=== PATIENT | male | born 1980 | race Caucasian/White ===

== ENCOUNTER 2020-11-02 05:29 | Inpatient (IN) | payer BC ==
[~2020-11-02] VITALS: Ht 188 cm; Wt 97.3 kg
[2020-11-02 05:45] LABS: Calcium, Ionized (POC) 1.05 mmol/L (1.10-1.46); Chloride (POC) 105 mmol/L (98-108); Creatinine (POC) 1.2 mg/dL (0.8-1.3); Glucose (ISTAT POC) 320 mg/dL (70-99); Potassium (POC) 3.7 mmol/L (3.5-5.5); Sodium (POC) 137 mmol/L (135-148); Total CO2 (POC) 15 mmol/L (21-32)
[2020-11-02 05:48] LABS: PCO2 Arterial 34.2 mmHg (35-45); PO2 Arterial 97.4 mmHg (80-100); pH Blood Arterial 7.25 (7.35-7.45)
[2020-11-02 05:51] LABS: Source, Urine Catheter
[2020-11-02 05:52] LABS: Hematocrit 48.2 % (37.0-53.0); Hemoglobin 16.1 g/dL (13.5-17.5); Mean Corpuscular HGB 30.7 pg (26.0-34.0); Mean Corpuscular HGB Conc 33.4 g/dL (31.5-36.5); Mean Corpuscular Volume 92 fL (80-100); Mean Platelet Volume 9.5 fL (9.1-12.4); Platelet Count 253 K/mm3 (150-400); RDW Coefficient Variation 13.9 % (11.7-14.2); RDW Standard Deviation 47.3 fL (35.1-46.3); Red Blood Cell Count 5.25 M/mm3 (4.30-5.90); White Blood Cell Count 14.04 K/mm3 (4.00-11.30)
[2020-11-02 06:11] LABS: Bilirubin, Urine Neg (Neg); Blood, Urine 1+ (Neg); Glucose Qualitative, Urine Neg (Neg); Ketones, Urine Neg (Neg); Leukocyte Esterase, Urine Neg (Neg); Nitrite, Urine Neg (Neg); Protein, Urine 2+ (Neg); Specific Gravity, Urine 1.015 (1.003-1.022); Urobilinogen, Urine NORM (Normal)
[2020-11-02 06:14] LABS: Appearance, Urine Clear (Clear); Color, Urine Yellow (P-Yellow)
[2020-11-02 06:15] LABS: BAND PERCENT MAN 9 % (0-8); BASOPHILS ABSOLUTE MAN 0.14 K/mm3 (0.00-0.23); BASOPHILS PERCENT MAN 1 % (0-2); EOSINOPHILS ABSOLUTE MAN 0.28 K/mm3 (0.00-0.68); EOSINOPHILS PERCENT MAN 2 % (0-6); LYMPHOCYTES ABSOLUTE MAN 5.61 K/mm3 (0.84-5.20); LYMPHOCYTES PERCENT MAN 40 % (21-46); MONOCYTES ABSOLUTE MAN 0.56 K/mm3 (0.16-1.47); MONOCYTES PERCENT MAN 4 % (4-13); MYELOCYTE ABSOLUTE MAN 0.14 K/mm3 (0.00-0.00); MYELOCYTE PERCENT MAN 1 % (0-0); SEG NEUTROPHILS PERCENT MAN 43 % (41-73); TOTAL CELLS COUNTED 100
[2020-11-02 06:17] LABS: Amorphous Light (0-Heavy); Bacteria Few /hpf; Spermatozoa Few /hpf; Squamous Epithelial Cells Few /hpf (Few); White Blood Cells, Urine 0-2 /hpf (0-5)
[2020-11-02 06:18] LABS: Alanine Aminotransfer (ALT/SGP 228 U/L (12-78); Albumin/Globulin Ratio 0.9 (0.8-1.8); Alk Phos 86 U/L (50-136); Anion Gap 16 mmol/L (6-16); Aspartate Aminotrans (AST/SGOT 200 U/L (12-37); Bilirubin, Total 0.3 mg/dL (0.1-1.0); Blood Urea Nitrogen 11 mg/dL (8-24); Bun/Creatinine Ratio 9.7 (12.0-20.0); CO2, Blood 15 mmol/L (21-32); Calcium, Blood 7.5 mg/dL (8.5-10.1); Chloride, Blood 107 mmol/L (98-108); Creatinine, Blood 1.13 mg/dL (0.60-1.20); Ethanol (Alcohol), Blood, Med <3 mg/dL; Globulin, Blood 3.3 g/dL (2.2-4.0); Glomerular Filtration Rate 57 (60-); Glucose, Blood 317 mg/dL (70-99); Potassium, Blood 3.7 mmol/L (3.5-5.5); Sodium, Blood 138 mmol/L (136-145); Total Protein, Blood 6.3 g/dL (6.4-8.2)
[2020-11-02 06:21] LABS: U Amphetamine Screen Not Detected; U Barbituate Screen Not Detected; U Benzodiazapine Screen Not Detected; U Buprenorphine Screen Not Detected; U Cannabinoids Screen Not Detected; U Cocaine Screen Not Detected; U Methadone Screen Not Detected; U Methamphetamine Screen Not Detected; U Opiates Screen Not Detected; U Oxycodone Screen Not Detected; U Phencyclidine Screen Not Detected; U Propoxyphene Screen Not Detected
[2020-11-02 06:49] LABS: SARS-Cov-2 (COVID-19) PCR, MMC NEGATIVE (NEGATIVE)
--- NOTE | 2020-11-02 09:30 | NUR ---
ADMIT PT ARRIVED TO ICU 5 AT 0835 VIA ER BED. PT IS INTUBATED AND SEDATED UPON ARRIVAL. VENT SETTINGS AC 18, TV 500, PEEP 8, FIO2 50%. PT SEDATED WITH PROPOFOL AT 50 MCG/KG/MIN. PT WITHDRAWS ALL EXTREMITIES TO NOXIOUS STIMULI. PT DOES NOT AWAKEN OR MAKE ANY PURPOSFUL MOVEMENTS AT THIS TIME. PT SHIVERING AND INTERNAL ROTATION OF SHOULDERS AND LEGS NOTED. SBW RESTRAINTS IN PLACE. CLAUDIO TEMP PROBE IN PLACE WITH CLOUDY YELLOW URINE OUTPUT NOTED. DR MEDINA AT BEDSIDE TO DISCUSS PLAN OF CARE. PT SPOUSE DARVIN AT BEDSIDE AT THIS TIME. PLAN TO PLACE COOLING CATH. WILL CONTINUE TO MONITOR.
--- NOTE | 2020-11-02 11:32 | NUR ---
TEMPERATURE MANAGEMENT COOLING CATH PLACED TO RIGHT FEMORAL SITE. COOLING STARTED AT 1100. TARGET TEMP 36 DEGREES C.
[2020-11-02 16:19] LABS: PCO2 Arterial 39.6 mmHg (35-45); pH Blood Arterial 7.36 (7.35-7.45)
--- NOTE | 2020-11-02 17:04 | NUR ---
SHIFT SUMMARY NO ACUTE CHANGES THIS SHIFT. PT REMAINS INTUBATED AND SEDATED. VENT SETTINGS AC 18, TV 500, PEEP 5, FIO2 40%. PT SEDATED WITH PROPOFOL AT 65 MCG/KG/MIN. PT WITH PERIODS OF SHIVERING AND MORE PURPOSEFUL APPEARING MOVEMENT OF UPPER EXTREMITIES. COOLING CATH LINE REMAINS IN PLACE TO RIGHT GROIN WITH TTM AT [address] OGT IN PL[address] TO LIS. MINIMAL OUTPUT NOTED. PT SPOUSE AT BEDSIDE, UPDATED TO PLAN OF CARE. CLAUDIO TEMP PROBE IN PLACE WITH CLOUDY YELLOW OUTPUT NOTED. SBW RESTRAINTS IN PLACE. VITAL SIGNS STABLE. WILL CONTINUE TO MONITOR AND REPORT OFF TO ONCOMING RN.
--- NOTE | 2020-11-02 17:11 | NUR ---
pt on vent therputic time with . minimal conversation let her ask for what she needs. Her biggest stressor is updating his sister. offered to speak with his siter. spenk 20 minutes on phone giving gentle updates and theraputic converstion with her. Spent time with pt after and coached her on talking and reminising with him. reenforced time to see neurologically how he does and moitorint his cardiac function.
[2020-11-02 17:36] LABS: International Normalized Ratio 0.95; Prothrombin Time Results 10.3 Sec (9.7-11.5)
--- NOTE | 2020-11-02 19:30 | NUR ---
ASSUMPTION OF CARE PT REMAINS INTUBATED AT THIS TIME. VENT SETTINGS 18/500/5/40%. PT HAS COOLING CATH WITH TARGET TEMP 96.8. PT CONTINUES TO HAVE ELEVATED TEMP. PT UNABLE TO FOLLOW COMMANDS BUT WITHDRAWS FROM NOXIOUS STIMULI. PUPILS SLUGGISH TO RESPOND. HEPARIN INFUSING AT 13UNITS/HR AND PROPOFOL 65MCG/KG/MIN. CLAUDIO DRAINING YELLOW URINE.
--- NOTE | 2020-11-02 22:40 | NUR ---
HYPERTENSIVE DR. MEDINA NOTIFIED OF BP 160-170S/100-110. NEW ORDERS RECEIVED FOR AMLODIPINE 5MG PT.
[2020-11-03 05:49] LABS: BASOPHILS ABSOLUTE AUTO 0.05 K/mm3 (0.00-0.23); BASOPHILS PERCENT AUTO 0 % (0-2); EOSINOPHILS ABSOLUTE AUTO 0.13 K/mm3 (0.00-0.68); EOSINOPHILS PERCENT AUTO 1 % (0-6); Hematocrit 42.7 % (37.0-53.0); IMMATURE GRAN ABSOLUTE AUTO 0.06 K/mm3 (0.00-0.10); IMMATURE GRAN PERCENT AUTO 1 % (0-1); LYMPHOCYTES ABSOLUTE AUTO 1.15 K/mm3 (0.84-5.20); LYMPHOCYTES PERCENT AUTO 9 % (21-46); MONOCYTES ABSOLUTE AUTO 0.98 K/mm3 (0.16-1.47); MONOCYTES PERCENT AUTO 8 % (4-13); Mean Corpuscular HGB 31.2 pg (26.0-34.0); Mean Corpuscular HGB Conc 35.1 g/dL (31.5-36.5); Mean Corpuscular Volume 89 fL (80-100); Mean Platelet Volume 9.1 fL (9.1-12.4); NEUTROPHILS ABSOLUTE AUTO 10.44 K/mm3 (1.96-9.15); NEUTROPHILS PERCENT AUTO 81 % (41-73); Platelet Count 212 K/mm3 (150-400); RDW Standard Deviation 45.5 fL (35.1-46.3); Red Blood Cell Count 4.81 M/mm3 (4.30-5.90); White Blood Cell Count 12.81 K/mm3 (4.00-11.30)
[2020-11-03 06:10] LABS: Anion Gap 7 mmol/L (6-16); Blood Urea Nitrogen 8 mg/dL (8-24); Bun/Creatinine Ratio 11.3 (12.0-20.0); CO2, Blood 22 mmol/L (21-32); Chloride, Blood 113 mmol/L (98-108); Creatinine, Blood 0.71 mg/dL (0.60-1.20); Glomerular Filtration Rate >60 (60-); Glucose, Blood 114 mg/dL (70-99); Potassium, Blood 3.3 mmol/L (3.5-5.5); Sodium, Blood 142 mmol/L (136-145)
--- NOTE | 2020-11-03 06:10 | NUR ---
SHIFT SUMMARY PT REMAINS INTUBATED AT THIS TIME. VENT SETTINGS 18/500/5/30. SCANT HINOJOSA SECRETIONS IN OGT. PT IS RECEIVING PROPOFOL AT 65MCG/KG/MIN, HEPARIN 30UNITS/HR, AND NIMBEX 2MCG/KG/MIN. TOF 0/4. PT HAS COOLING CATH WITH TARGET TEMP OF 96.8. PT CURRENT TEMP 96.9. PT HAD OUTPUT OF 1900ML URINE. , DARVIN, CALLS OCCASIONALLY FOR UPDATES ON PT CONDITION. R GROIN CENTRAL LINE SITE LEAKING AND TEGRADERM BEGINNING TO LIFT. NEW DRESSING APPLIED BUT SITE CONTINUES TO OOZE. WILL REPORT TO ONCOMING RN.
[2020-11-03 06:20] LABS: Base Excess Venous -2.9 mmol/L; Bicarbonate Venous 22.5 mmol/L (24.0-30.0); PCO2 Venous 35.7 mmHg (38-42); PO2 Venous 105 mmHg (38-42); pH Blood Venous 7.39 (7.34-7.37)
--- NOTE | 2020-11-03 07:30 | NUR ---
ASSUMED CARE BEDSIDE REPORT RECIEVED. PT IS INTUBATED, SEDATED, AND PARALYZED. VENT SETTINGS AC 18, TV 500, PEEP 5, FIO2 30%. PT WITH SCANT ETT SECRETIONS NOTED. PT SEDATED WITH PROPOFOL AT 65 MCG/KG/MIN. PT PARALYZED WITH NIMBEX AT 2 MCG/KG/MIN. PT WITHOUT ANY PURPOSEFUL MOVEMENTS NOTED. TRAIN OF FOUR IS 4/4. HEPARIN INFUSING AT 13 UNITS/KG/HR. COOLING CATH LINE TO RIGHT GROIN IN PLACE. SITE IS OOZING BLOOD AT INSERTION SITE. TTM SET AT 96.8. OGT IN PLACE TO LIS. MINIMAL OUTPUT NOTED. SBW RESTRAINTS IN PLACE. CLAUDIO TEMP PROBE IN PLACE WITH YELLOW OUTPUT NOTED. WILL CONTINUE TO MONITOR.
[2020-11-03 08:03] LABS: Alanine Aminotransfer (ALT/SGP 178 U/L (12-78); Albumin, Blood 3.1 g/dL (3.4-5.0); Alk Phos 57 U/L (50-136); Anion Gap 9 mmol/L (6-16); Aspartate Aminotrans (AST/SGOT 151 U/L (12-37); Bilirubin, Total 0.5 mg/dL (0.1-1.0); Blood Urea Nitrogen 8 mg/dL (8-24); Bun/Creatinine Ratio 11.4 (12.0-20.0); CO2, Blood 20 mmol/L (21-32); Calcium, Blood 8.1 mg/dL (8.5-10.1); Chloride, Blood 112 mmol/L (98-108); Globulin, Blood 3.2 g/dL (2.2-4.0); Glomerular Filtration Rate >60 (60-); Glucose, Blood 113 mg/dL (70-99); Magnesium, Blood 2.4 mg/dL (1.6-2.4); Potassium, Blood 3.4 mmol/L (3.5-5.5); Sodium, Blood 141 mmol/L (136-145); Total Protein, Blood 6.3 g/dL (6.4-8.2)
--- NOTE | 2020-11-03 11:10 | NUR ---
REWARMING COOLING MEASURES STOPPED AT 1100. PT SET TO SLOWLY REWARM TO 98.6.
--- NOTE | 2020-11-03 14:47 | NUR ---
CLARIFIER OPERATOR HELPER DR ESPINOSA SPOKE TO PT SPOUSE DARVIN ABOUT GOING TO CLARIFIER OPERATOR HELPER. DARVIN AGREES TO PROCEDURE. PT DISCONNECTED FROM TEMPERATURE MANAGEMENT MACHINE. COOLING CATH LINE CLAMPED. PT TAKEN TO CLARIFIER OPERATOR HELPER WITH RT ASSISTANCE AT 1430.
[2020-11-03 15:28] LABS: PCO2 Arterial 31.8 mmHg (35-45); PO2 Arterial 78.4 mmHg (80-100); pH Blood Arterial 7.44 (7.35-7.45)
--- NOTE | 2020-11-03 16:26 | NUR ---
pt in after speaking with cardiology. she wanted to review specifics of his care. We reviewed what was on the monitor and his labs and plan of care.Review of cardic cath and possible benefits. therputic time with her for stress relief. Will continue to follow with plan of care.
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
--- NOTE | 2020-11-03 19:30 | NUR ---
ASSUMED CARE ASSUMED CARE OF PATIENT. REMAINS INTUBATED- AC 18, TV 500, PEEP 5, FIO2 30%. RR 18. MONITOR SHOWS NSR, RATE 80s. SBP 90s AT THIS TIME. TEMP 99.1F. COOLING CATHETER IN PLACE. SEDATED WITH PROPOFOL AT 35MCG/KG/MIN AND PRECEDEX AT 0.5MCG/KG/HR. NOT FOLLOWING COMMANDS, BUT MOVES ALL EXTREMITIES AND WITHDRAWS FROM NOXIOUS STIMULI. PUPILS 2MM, VERY SLUGGISH. OG WITH VITAL HIGH PROTEIN AT 15MLs/HR (GOAL IS 40MLs/HR). CLAUDIO PATENT AND DRAINING DAINA URINE. RIGHT FEMORAL CENTRAL LINE WITH OOZING BLOOD NOTED. SEE SHIFT ASSESSMENT FOR FULL ASSESSMENT.
--- NOTE | 2020-11-03 20:10 | NUR ---
TR BAND TR BAND IN PLACE TO RIGHT RADIAL. RIGHT HAND IS SLIGHTLY PALE AND IS COOL TO TOUCH. CAP REFILL IS STILL <3 SECONDS. UNABLE TO ASSESS SENSATION TO FINGERS/HAND. ARM BOARD IN PLACE. SMALL AMOUNT OF OOZING NOTED AT SITE.
--- NOTE | 2020-11-03 21:25 | NUR ---
HYPOTENSION DR. MEDINA NOTIFIED OF SBP 70s. NEW ORDERS RECEIVED FOR LEVOPHED GTT NEEDED.
[2020-11-04 03:32] LABS: BASOPHILS ABSOLUTE AUTO 0.05 K/mm3 (0.00-0.23); BASOPHILS PERCENT AUTO 0 % (0-2); EOSINOPHILS ABSOLUTE AUTO 0.17 K/mm3 (0.00-0.68); EOSINOPHILS PERCENT AUTO 1 % (0-6); Hematocrit 37.6 % (37.0-53.0); Hemoglobin 12.9 g/dL (13.5-17.5); IMMATURE GRAN ABSOLUTE AUTO 0.05 K/mm3 (0.00-0.10); IMMATURE GRAN PERCENT AUTO 0 % (0-1); LYMPHOCYTES ABSOLUTE AUTO 1.72 K/mm3 (0.84-5.20); LYMPHOCYTES PERCENT AUTO 14 % (21-46); MONOCYTES ABSOLUTE AUTO 1.04 K/mm3 (0.16-1.47); MONOCYTES PERCENT AUTO 8 % (4-13); Mean Corpuscular HGB 30.8 pg (26.0-34.0); Mean Corpuscular HGB Conc 34.3 g/dL (31.5-36.5); Mean Corpuscular Volume 90 fL (80-100); Mean Platelet Volume 9.4 fL (9.1-12.4); NEUTROPHILS ABSOLUTE AUTO 9.68 K/mm3 (1.96-9.15); NEUTROPHILS PERCENT AUTO 76 % (41-73); Platelet Count 205 K/mm3 (150-400); RDW Coefficient Variation 14.2 % (11.7-14.2); RDW Standard Deviation 46.7 fL (35.1-46.3); Red Blood Cell Count 4.19 M/mm3 (4.30-5.90); White Blood Cell Count 12.71 K/mm3 (4.00-11.30)
[2020-11-04 03:51] LABS: Alanine Aminotransfer (ALT/SGP 126 U/L (12-78); Albumin, Blood 2.6 g/dL (3.4-5.0); Albumin/Globulin Ratio 0.9 (0.8-1.8); Alk Phos 49 U/L (50-136); Anion Gap 7 mmol/L (6-16); Aspartate Aminotrans (AST/SGOT 86 U/L (12-37); Bilirubin, Total 0.5 mg/dL (0.1-1.0); Blood Urea Nitrogen 12 mg/dL (8-24); Bun/Creatinine Ratio 11.4 (12.0-20.0); CO2, Blood 24 mmol/L (21-32); Calcium, Blood 7.8 mg/dL (8.5-10.1); Chloride, Blood 110 mmol/L (98-108); Creatinine, Blood 1.05 mg/dL (0.60-1.20); Glomerular Filtration Rate >60 (60-); Glucose, Blood 118 mg/dL (70-99); Magnesium, Blood 2.3 mg/dL (1.6-2.4); Phosphorus, Blood 2.2 mg/dL (2.5-4.9); Potassium, Blood 3.5 mmol/L (3.5-5.5); Sodium, Blood 141 mmol/L (136-145); Total Protein, Blood 5.6 g/dL (6.4-8.2)
[2020-11-04 05:34] LABS: PCO2 Arterial 33.6 mmHg (35-45); PO2 Arterial 76.3 mmHg (80-100); pH Blood Arterial 7.46 (7.35-7.45)
--- NOTE | 2020-11-04 06:19 | NUR ---
SHIFT SUMMARY PT REMAINS INTUBATED AND SEDATED. RESPONDS TO NOXIOUS STIMULI BUT NOT FOLLOWING COMMANDS. VENT [id number]/500/30%/ PEEP-5 c O2 SATS >95%. PRECEDEX CONTINUES @ 0.5MCG/KG/HR, PROPOFOL @ 30MCG/KG/MIN @ LEVOPHED @ 2MCG/MIN. COOLING CATH MAINTAINING GOAL TEMP OF 98.6. R FEMORAL SITE OOZING HAS STOPPED, DRESSING CHANGED. TF @ GOAL RATE OF 40ML/HR, <10ML RESIDUAL. CLAUDIO CATH DRAINING YELLOW/ GREENISH URINE. R RADIAL TR BAND OFF SINCE 99, NO HEMATOMA/ SIGNS OF BLEEDING, DRESSING C/D/I, ARM BOARD REMAINS IN PLACE. SPOUSE DARVIN UPDATED ON PT CONDITION @ 0600, REQUESTS TO BE AT BEDSIDE WHEN SEDATION IS TITRATED OFF.
--- NOTE | 2020-11-04 07:39 | NUR ---
ASSUMED CARE OF PT, REPORT RCV'D FROM SHAYLA PERALTA. PT INTUBATED AND SEDATED AT START OF SHIFT. PT ABLE TO TURN EYES/HEAD TOWARD VERBAL STIMULATION AND ABLE TO SQUEEZE HANDS ON COMMANDS. PT THRASHING AROUND PULLING AT RESTRAINTS AND TRYING TO MOVE ETT OUT OF MOUTH WITH HIS TONGUE. SEDATION INCREASED, PT CONTINUES TO BE DIFFICULT TO SEDATED AND RESTLESS. PRECEDEX INCREASED AND FENTANYL PUSH GIVEN. PT VENT CHANGED TO SPON 7/5, 30%. MODERATE AMOUNT OF THICK ORAL SECRETIONS AND ETT SECRETIONS. MAIL HANDLER EQUIPMENT OPERATOR AT BEDSIDE, CALL TO CAREER PROFESSIONAL WITH PLAN TO EXTUBATE IMMEDIATELY. PT EXTUBATED AT 0728 TO ROOM AIR. PROPOFOL ON STANDBY, PRECEDEX STILL INFUSING AT 0.5 MCG/KG/HR, LEVOPHED @ 2 MCG/MIN. PT'S CALLED AND UPDATED ON PT'S IMPROVEMENT AND EXTUBATION. BILATERAL SOFT WRIST RESTRAINTS REMOVED. COOLING CATH REMAINS IN PLACE, PLAN TO REMOVE AT 1100. RIGHT RADIAL ACCESS SITE SOFT, NONTENDER, ARMBOARD IN PLACE. SATS 93% ON ROOM AIR, SIT HR 115. CLAUDIO PATENT AND DRAINING. AT PTS BEDSIDE AT THIS TIME. SEE FULL SHIFT ASSESSMENT.
--- NOTE | 2020-11-04 10:02 | NUR ---
PRECEDEX AND LEVOPHED PLACED ON STANDBY. PT VERY EMOTIONAL BUT REMAINS ALERT AND ORIENTED TO SELF, FOLLOWING COMMANDS, ANSWERING QUESTIONS APPROPRIATELY. PT NEEDS FREQUENT REORIENTATION TO PLACE AND SITUATION. PT'S AT BEDSIDE COMFORTING HIM. PT REMAINS ON RA WITH SATS 96%. PT ABLE TO DRINK WATER WITHOUT DIFFICULTY, PT USING FLUTTER VALVE INSTRUCTED AND WITH ENCOURAGEMENT. COOLING CATH DISCONTINUED.
--- NOTE | 2020-11-04 11:02 | NUR ---
Supportive visit this AM. Spoke with Primary RN Sabino and discussed case. Pt extubated and doing well today. Pt a little emotional but no new concerns. Pt resting in bed with his eyes closed upon arrival. Pt appears comfortable no S/S of distress at this time. Pt left undisturbed. Pt's spouse Katharina at bedside. Offered supportive and therapeutic listening. Katharina expresses appreciation of visit. Palliative Care will remain available.
--- NOTE | 2020-11-04 12:28 | NUR ---
PT CONTINUES TO BE EMOTIONAL AND NEED FREQUENT REORIENTATION. PT COMPLAINS OF CHEST PAIN THAT INCREASES WITH INSPIRATION AND WITH CHEST PALPATION. EKG PERFORMED AND IN CHART, NO OBVIOUS EKG CHANGES. PAIN LIKELY STEMMING FROM CPR COMPRESSIONS PAIN LESSENS AT REST. PT MEDICATED FOR PAIN PER EMAR. PT'S REMAINS AT BEDSIDE. PT MADE PCU STATUS, FAMILY AWARE.
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
--- NOTE | 2020-11-05 00:45 | NUR ---
PATIENT IS ALERT AND ORIENTED X SELF AND FAMILY, VERY FORGETFULL AND NEEDS REORIENTING FREQUENTLY. PATIENT ALSO EMOTIONAL. 02 SATS >95% ON RA AT BEGINNING OF SHIFT, AFTER FALLING ASLEEP 02 SATS DROPPED AND PATIENT PLACED ON 2L VIA NC, 02 SATS NOW 95%. MEDICATEDD FOR CHEST AND GENERALIZED PAIN PER EMAR. REPOSITIONED Q2 HOURS. AT BEDISDE WITH PATIENT. VSS. CALL LIGHT IN REACH.
--- NOTE | 2020-11-05 01:23 | NUR ---
ASSUMED CARE RECEIVED REPORT FROM ALEXANDRA MCGUIRE AND ASSUMED CARE. PT IS RESTING IN BED WITH AT THE BEDSIDE. NO ACUTE DISTRESS, WILL CONTINUE PLAN OF CARE.
[2020-11-05 04:10] LABS: BASOPHILS ABSOLUTE AUTO 0.05 K/mm3 (0.00-0.23); BASOPHILS PERCENT AUTO 1 % (0-2); EOSINOPHILS ABSOLUTE AUTO 0.27 K/mm3 (0.00-0.68); EOSINOPHILS PERCENT AUTO 3 % (0-6); Hematocrit 33.6 % (37.0-53.0); Hemoglobin 11.4 g/dL (13.5-17.5); IMMATURE GRAN ABSOLUTE AUTO 0.04 K/mm3 (0.00-0.10); IMMATURE GRAN PERCENT AUTO 0 % (0-1); LYMPHOCYTES ABSOLUTE AUTO 2.08 K/mm3 (0.84-5.20); LYMPHOCYTES PERCENT AUTO 21 % (21-46); MONOCYTES ABSOLUTE AUTO 0.96 K/mm3 (0.16-1.47); MONOCYTES PERCENT AUTO 10 % (4-13); Mean Corpuscular HGB 30.3 pg (26.0-34.0); Mean Corpuscular HGB Conc 33.9 g/dL (31.5-36.5); Mean Corpuscular Volume 89 fL (80-100); Mean Platelet Volume 9.3 fL (9.1-12.4); NEUTROPHILS ABSOLUTE AUTO 6.73 K/mm3 (1.96-9.15); NEUTROPHILS PERCENT AUTO 66 % (41-73); Platelet Count 188 K/mm3 (150-400); Red Blood Cell Count 3.76 M/mm3 (4.30-5.90); White Blood Cell Count 10.13 K/mm3 (4.00-11.30)
[2020-11-05 05:17] LABS: Alanine Aminotransfer (ALT/SGP 95 U/L (12-78); Albumin, Blood 2.5 g/dL (3.4-5.0); Albumin/Globulin Ratio 0.8 (0.8-1.8); Alk Phos 48 U/L (50-136); Anion Gap 6 mmol/L (6-16); Aspartate Aminotrans (AST/SGOT 69 U/L (12-37); Bilirubin, Total 0.7 mg/dL (0.1-1.0); Blood Urea Nitrogen 9 mg/dL (8-24); Bun/Creatinine Ratio 10.8 (12.0-20.0); CO2, Blood 26 mmol/L (21-32); Calcium, Blood 7.9 mg/dL (8.5-10.1); Chloride, Blood 109 mmol/L (98-108); Creatinine, Blood 0.83 mg/dL (0.60-1.20); Glomerular Filtration Rate >60 (60-); Glucose, Blood 90 mg/dL (70-99); Magnesium, Blood 2.2 mg/dL (1.6-2.4); Phosphorus, Blood 3.2 mg/dL (2.5-4.9); Potassium, Blood 3.3 mmol/L (3.5-5.5); Sodium, Blood 141 mmol/L (136-145); Total Protein, Blood 5.5 g/dL (6.4-8.2)
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
[2020-11-06 04:49] LABS: Alanine Aminotransfer (ALT/SGP 97 U/L (12-78); Albumin, Blood 2.6 g/dL (3.4-5.0); Albumin/Globulin Ratio 0.8 (0.8-1.8); Alk Phos 56 U/L (50-136); Anion Gap 3 mmol/L (6-16); Aspartate Aminotrans (AST/SGOT 66 U/L (12-37); Bilirubin, Total 0.8 mg/dL (0.1-1.0); Blood Urea Nitrogen 8 mg/dL (8-24); Bun/Creatinine Ratio 9.9 (12.0-20.0); CO2, Blood 29 mmol/L (21-32); Calcium, Blood 8.3 mg/dL (8.5-10.1); Chloride, Blood 108 mmol/L (98-108); Creatinine, Blood 0.81 mg/dL (0.60-1.20); Globulin, Blood 3.4 g/dL (2.2-4.0); Glomerular Filtration Rate >60 (60-); Glucose, Blood 92 mg/dL (70-99); Magnesium, Blood 2.2 mg/dL (1.6-2.4); Potassium, Blood 3.7 mmol/L (3.5-5.5); Sodium, Blood 140 mmol/L (136-145)
--- NOTE | 2020-11-06 05:41 | NUR ---
SHIFT SUMMARY PATIENT IS ALERT AND ORIENTED X3, SELF, FAMILY, AND FOLLOWING DIRECTIONS. STILL HAS TROUBLE STATING WHERE HE IS AND WHAT YEAR IT IS. 02 SATS >93% ON RA, 2L NC WHILE SLEEPING, SATS WOULD DROP TO 88%. BP AND HR STABLE. PATIENT ABLE TO ASSIST WITH REPOSITIONING AND AT BEDSIDE HELPING THE PATIENT REPOSITION. ABLE TO VOID IN URINAL. MEDICATED FOR CHEST/RIB PAIN PER EMAR. NO ACUTE CHANGES. BED ALARM ON AND CALL LIGHT IN REACH.
[2020-11-06 09:46] LABS: Anion Gap 4 mmol/L (6-16); Blood Urea Nitrogen 10 mg/dL (8-24); Bun/Creatinine Ratio 13.1 (12.0-20.0); CO2, Blood 27 mmol/L (21-32); CPK Creatine Kinase 684 U/L (39-308); Calcium, Blood 8.2 mg/dL (8.5-10.1); Chloride, Blood 108 mmol/L (98-108); Creatinine, Blood 0.76 mg/dL (0.60-1.20); Glomerular Filtration Rate >60 (60-); Glucose, Blood 113 mg/dL (70-99); Potassium, Blood 3.6 mmol/L (3.5-5.5); Sodium, Blood 139 mmol/L (136-145)
[2020-11-06 09:48] LABS: Creatine Kinase MB <1.0 ng/mL (0.0-3.6); Creatine Kinase MB Index Unable to Calculate (0.0-4.0)
--- NOTE | 2020-11-06 20:18 | NUR ---
PT'S AT BEDSIDE, PT RECEIVED FENTANYL 100MCG 1X PER MAR FOR SEVERE RIB PAIN, WHEN LEFT PT BECAME ACUTELY CONFUSED, AGITATED, AND PHYSICALLY IMPULSIVE, SHAYLA RASHID CALLED DR. JAMES AND OBTAINED ORDER FOR ONE TIME ATIVAN, PT ASSISTED TO BATHROOM AND ATIVAN ADMINISTERED WHEN HE RETURNED TO BED AT 1405, ORDER FOR COBRA PLACED AND PAPERWORK COMPLETED BY SAP ANALYST, RETURNED TO BEDSIDE, AT 1715 REPORT CALLED TO SHAYLA CASH AT [facility] VIA PHONE, AT 1722 REPORT GIVEN TO EMS AT BEDSIDE, PT LEFT UNIT AT 1749 ON RA WITH NO TELEMETRY MONITORING, OXYGEN, OR IV INFUSIONS, PT'S GIVEN ADDITIONAL INFORMATION AT BEDSIDE, PT'S AND PT DENY ADDITIONAL CONCERNS AT THIS TIME
--- NOTE | 2020-11-07 11:33 | NUR ---
follow up with patients on after care needs. Encouraged her to stay in touch with us as a resource.
== END 2020-11-06 17:49 | disposition short-term general hospital (02) | DRG 871 ==
LOC: ER 05:29 → ICUW 07:29 → ICUE 07:29 → PCU 11-04 19:05
PROVIDERS: Family Medicine; Internal Medicine Cardiovascular Disease; Internal Medicine Pulmonary Disease; Specialist; Student in an Organized Health Care Education/Training Program; ADMIT Internal Medicine
PROC: 0BH18EZ Insertion of Endotracheal Airway into Trachea, Via Natural or Artificial Opening Endoscopic (ICD-10-PCS; principal; 2020-11-02)
PROC: 02HV33Z Insertion of Infusion Device into Superior Vena Cava, Percutaneous Approach (ICD-10-PCS; 2020-11-02)
PROC: 0D9670Z Drainage of Stomach with Drainage Device, Via Natural or Artificial Opening (ICD-10-PCS; 2020-11-02)
PROC: B2111ZZ Fluoroscopy of Multiple Coronary Arteries using Low Osmolar Contrast (ICD-10-PCS; 2020-11-02)
PROC: 3E033XZ Introduction of Vasopressor into Peripheral Vein, Percutaneous Approach (ICD-10-PCS; 2020-11-02)
PROC: 5A12012 Performance of Cardiac Output, Single, Manual (ICD-10-PCS; 2020-11-02)
PROC: 5A1945Z Respiratory Ventilation, 24-96 Consecutive Hours (ICD-10-PCS; 2020-11-02)
DX: A41.9 Sepsis, unspecified organism (principal); J96.01 Acute respiratory failure with hypoxia; J69.0 Pneumonitis due to inhalation of food and vomit; I46.2 Cardiac arrest due to underlying cardiac condition; J18.9 Pneumonia, unspecified organism; I21.A1 Myocardial infarction type 2; R65.21 Severe sepsis with septic shock; I47.2 Ventricular tachycardia; I42.9 Cardiomyopathy, unspecified; F17.210 Nicotine dependence, cigarettes, uncomplicated; Z20.822 Contact with and (suspected) exposure to COVID-19
CPT/HCPCS: 31500; 36415; 36556; 36600; 51702; 70450; 71045; 80047; 80048; 80053; 81001; 82550; 82553; 82803; 82947; 83605; 83735; 84100; 84145; 84484; 85014; 85025; 85347; 85610; 85730; 86140; 87040; 87070; 87077; 87186; 87205; 93005; 93010; 93458; 94002; 94003; 96374-59; 99291-25; 99292; A9270; C1751; C1769; C1894; C8929; G0480; J1644; J1650; J2060; J2405; J2543; J2704; J3010; J7030; J7040; J7050; J7060; Q9957; Q9967; U0004